=== PATIENT | female | born 1975 | race Caucasian/White ===

== ENCOUNTER 2016-09-24 15:41 | Emergency (ER) | payer OTHER ==
[2016-09-24 16:09] VITALS: BP 126/73
--- NOTE | 2016-09-24 16:25 | UC ---
Throat Pain/Nasal Jamar HPI - HPI Summary HPI Summary: FOUR DAYS OF SINUS PRESSURE FACIAL PAIN HEADACHE AND SWOLLEN TONSILS. NO FEVER. - History of Current Complaint Chief Complaint: UCRespiratory Stated Complaint: SORE THROAT NASAL CONGESTION Time Seen by Provider: 09/24/16 15:53 Hx Obtained From: Patient Hx Last Menstrual Period: 09/18/16 Onset/Duration: Gradual Onset, Lasting Days, Still Present Severity: Moderate Cough: Nonproductive Associated Signs & Symptoms: Positive: Sinus Discomfort, Nasal Discharge - Epiglottits Risk Factors Epiglottis Risk Factors: Negative - Allergies/Home Medications Allergies/Adverse Reactions: Allergies Allergy/AdvReac Type Severity Reaction Status Date / Time Aspirin Allergy Hives Verified 09/24/16 15:50 PMH/Surg Hx/FS Hx/Imm Hx Previously Healthy: Yes Endocrine History Of: Reports: Thyroid Disease Cardiovascular History Of: Denies: Hypertension, Congestive Heart Failure Respiratory History Of: Reports: Asthma - Surgical History Surgical History: Yes Surgery Procedure, Year, and Place: tubal ligation - Family History Known Family History: Negative: Respiratory Disease - Social History Occupation: Employed Full-time Lives: With Family Alcohol Use: Rare Substance Use Type: None Smoking Status (MU): Former Smoker Amount Used/How Often: 1 year ago - Immunization History Most Recent Influenza Vaccination: 2016 Most Recent Tetanus Shot: UTD Review of Systems Constitutional: Negative Skin: Negative Eyes: Negative ENT: Sore Throat, Nasal Discharge Respiratory: Cough Cardiovascular: Negative Gastrointestinal: Negative Genitourinary: Negative Motor: Negative Neurovascular: Negative Musculoskeletal: Negative Neurological: Negative Psychological: Negative All Other Systems Reviewed And Are Negative: Yes Physical Exam Triage Information Reviewed: Yes Appearance: Well-Appearing, No Pain Distress, Well-Nourished Vital Signs: Initial Vital Signs Temp 97.9 F 09/24/16 15:54 Pulse 86 09/24/16 15:54 Resp 18 09/24/16 15:54 BP 126/73 09/24/16 15:54 Pulse Ox 99 09/24/16 15:54 Vital Signs Reviewed: Yes Eye Exam: Normal ENT: Positive: Hearing grossly normal, Nasal congestion, TM bulging, TM dull Dental Exam: Normal Neck exam: Normal Neck: Positive: Supple, Nontender, No Lymphadenopathy Respiratory Exam: Normal Respiratory: Positive: Chest non-tender, Lungs clear, Normal breath sounds, No respiratory distress, No accessory muscle use Cardiovascular Exam: Normal Cardiovascular: Positive: RRR, No Murmur Abdominal Exam: Normal Musculoskeletal Exam: Normal Musculoskeletal: Positive: Strength Intact, ROM Intact Neurological Exam: Normal Psychological Exam: Normal Skin Exam: Normal Throat Pain/Nasal Course/Dx - Differential Dx/Diagnosis Differential Diagnosis/HQI/PQRI: Pharyngitis, Sinusitis, URI Provider Diagnoses: SINUSITIS; TONSILLITIS Discharge - Discharge Plan Condition: Stable Disposition: HOME Prescriptions: Amoxicillin/Clavulanate TAB* [Augmentin TAB 875*] 875 mg PO BID #20 tab Benzonatate CAP* [Tessalon 100 MG CAP*] 100 mg PO TID PRN #15 cap PRN Reason: Cough Patient Education Materials: Sinusitis (ED) Referrals: Piper De La Garza NP [Primary Care Provider] -
== END 2016-09-24 16:27 | disposition home or self-care (01) ==
LOC: UCCORT 15:41
DX: J32.9 Chronic sinusitis, unspecified (principal); J03.90 Acute tonsillitis, unspecified; E07.9 Disorder of thyroid, unspecified; J45.909 Unspecified asthma, uncomplicated; Z88.6 Allergy status to analgesic agent; Z87.891 Personal history of nicotine dependence
CPT/HCPCS: 87651; 99212; G0463

== ENCOUNTER 2017-02-17 16:36 | Emergency (ER) | payer OTHER ==
[2017-02-17 16:53] VITALS: BP 118/78
--- NOTE | 2017-02-17 18:16 | UC ---
Skin Complaint HPI - HPI Summary HPI Summary: THREE DAYS AGO BITTEN OR STUNG BY FLYING INSECT, REDNESS SWELLING AND PAIN TO AREA TODAY. NO HISTORY OF MRSA. NO FEVER. - History of Current Complaint Chief Complaint: UCSkin Time Seen by Provider: 02/17/17 17:30 Stated Complaint: BUG BITE Hx Obtained From: Patient, Family/Bolt Labeler Hx Last Menstrual Period: 01/26/14 Onset/Duration: Gradual Onset, Lasting Days, Still Present Skin Exposure Onset/Duration: Days Ago Onset Severity: Moderate Current Severity: Moderate Pain Intensity: 0 Pain Scale Used: 0-10 Numeric Location: Discrete Character: Swelling, Redness, Raised, Painful Aggravating Factor(s): Touch Alleviating Factor(s): Nothing Associated Signs & Symptoms: Positive: Negative, Tenderness, Red Streaks. Negative: Fever, Chills, Chest Pain, Hoarseness, Throat Tightening, Drainage, Joint Swelling Related History: Possible Reaction to: Insect - Allergy/Home Medications Allergies/Adverse Reactions: Allergies Allergy/AdvReac Type Severity Reaction Status Date / Time Aspirin Allergy Hives Verified 09/24/16 15:50 Review of Systems Constitutional: Negative Skin: Rash Eyes: Negative ENT: Negative Respiratory: Negative Cardiovascular: Negative Gastrointestinal: Negative Genitourinary: Negative Motor: Negative Neurovascular: Negative Musculoskeletal: Negative Neurological: Negative Psychological: Negative Is Patient Immunocompromised?: No All Other Systems Reviewed And Are Negative: Yes PMH/Surg Hx/FS Hx/Imm Hx Previously Healthy: Yes - Surgical History Surgical History: Yes Surgery Procedure, Year, and Place: tubal ligation - Family History Known Family History: Negative: Diabetes, Respiratory Disease - Social History Occupation: Employed Full-time Lives: With Family Alcohol Use: Rare Substance Use Type: None Smoking Status (MU): Former Smoker Amount Used/How Often: 1 year ago - Immunization History Most Recent Influenza Vaccination: 2016 Most Recent Tetanus Shot: UTD Physical Exam Triage Information Reviewed: Yes Appearance: Well-Appearing, No Pain Distress, Well-Nourished Vital Signs: Initial Vital Signs Temp 97.7 F 02/17/17 16:49 Pulse 84 02/17/17 16:49 Resp 18 02/17/17 16:49 BP 118/78 02/17/17 16:49 Pulse Ox 100 02/17/17 16:49 Vital Signs Reviewed: Yes Eye Exam: Normal ENT Exam: Normal Dental Exam: Normal Neck exam: Normal Neck: Positive: Supple, Nontender, No Lymphadenopathy Respiratory Exam: Normal Respiratory: Positive: Chest non-tender, Lungs clear, Normal breath sounds, No respiratory distress Cardiovascular Exam: Normal Cardiovascular: Positive: RRR, No Murmur, Pulses Normal Abdominal Exam: Normal Musculoskeletal Exam: Normal Neurological Exam: Normal Psychological Exam: Normal Skin: Positive: Other - ERYTHEMA 3CM X 3CM INDURATED TENDER AREA RIGHT FOREARM Course/Dx - Differential Diagnoses - Skin Complaint Differential Diagnoses: Abscess, Cellulitis - Diagnoses Provider Diagnoses: RIGHT FOREARM CELLULITIS; INSECT BITE/STING Discharge - Discharge Plan Condition: Stable Disposition: HOME Prescriptions: Cephalexin CAP* [Keflex CAP*] 500 mg PO QID #40 cap Patient Education Materials: Cellulitis (ED), Insect Bite or Sting (ED) Referrals: Pipre De La Garza NP [Primary Care Provider] -
== END 2017-02-17 17:47 | disposition home or self-care (01) ==
LOC: UCEAST 16:36
DX: S50.861A Insect bite (nonvenomous) of right forearm, initial encounter (principal); L03.113 Cellulitis of right upper limb; W57.XXXA Bitten or stung by nonvenomous insect and other nonvenomous arthropods, initial encounter
CPT/HCPCS: 99212; G0463

== ENCOUNTER 2017-03-26 11:59 | Emergency (ER) | payer OTHER ==
[2017-03-26 12:09] VITALS: BP 132/74
--- NOTE | 2017-03-26 12:12 | UC ---
Epistaxis Nasal HPI - HPI Summary HPI Summary: 41 year old female presents with complains of frequent nose bleeds from her right nare. - History of Current Complaint Chief Complaint: UCGeneralIllness Stated Complaint: FREQUENT BLOODY NOSE Time Seen by Provider: 03/26/17 12:12 Hx Obtained From: Patient Hx Last Menstrual Period: 01/26/14 Onset/Duration: Sudden Onset Timing: Constant Severity Initially: Moderate Severity Currently: Moderate Aggravating Factor(s): Nothing Alleviating Factor(s): Pressure, Position Associated Signs And Symptoms: Positive: Negative - Allergies/Home Medications Allergies/Adverse Reactions: Allergies Allergy/AdvReac Type Severity Reaction Status Date / Time Aspirin Allergy Hives Verified 03/26/17 12:09 Home Medications: Home Medications Albuterol HFA INHALER* [Ventolin HFA Inhaler*] 2 puff INH Q4H PRN 03/26/17 [ History Confirmed 03/26/17] Budesonide/Formote 160/4.5(NF) [Symbicort 160/4.5 (NF)] 2 puff INH BID 03/26/17 [History Confirmed 03/26/17] Levothyroxine TAB* [Synthroid TAB*] 800 mcg PO DAILY 03/26/17 [History Confirmed 03/26/17] Liothyronine TAB* [Cytomel TAB*] 100 mcg PO DAILY 03/26/17 [History Confirmed ] PMH/Surg Hx/FS Hx/Imm Hx Previously Healthy: Yes - Surgical History Surgical History: Yes Surgery Procedure, Year, and Place: tubal ligation - Family History Known Family History: Negative: Diabetes, Respiratory Disease - Social History Alcohol Use: Rare Substance Use Type: None Smoking Status (MU): Former Smoker Amount Used/How Often: 1 year ago - Immunization History Most Recent Influenza Vaccination: 2016 Most Recent Tetanus Shot: UTD Review of Systems Constitutional: Negative Skin: Negative Eyes: Negative ENT: Epistaxis Respiratory: Negative Cardiovascular: Negative Gastrointestinal: Negative Genitourinary: Negative Motor: Negative Neurovascular: Negative Musculoskeletal: Negative Neurological: Negative Psychological: Negative All Other Systems Reviewed And Are Negative: Yes Physical Exam Triage Information Reviewed: Yes Appearance: Well-Appearing Vital Signs: Initial Vital Signs Temp 36.9 C 03/26/17 12:07 Pulse 101 03/26/17 12:07 Resp 14 03/26/17 12:07 BP 132/74 03/26/17 12:07 Pulse Ox 98 03/26/17 12:07 Eye Exam: Normal ENT: Positive: Other - right nare anterior nasal bleed Dental Exam: Normal Neck exam: Normal Neck: Positive: 1 Respiratory Exam: Normal Cardiovascular Exam: Normal Abdominal Exam: Normal Musculoskeletal Exam: Normal Neurological Exam: Normal Psychological Exam: Normal Skin Exam: Normal Epistaxis Nasal Course/Dx - Differential Dx/Diagnosis Provider Diagnoses: anterior nose bleed rigth nare Discharge - Discharge Plan Condition: Stable Disposition: HOME Prescriptions: Amoxicillin/Clavulanate TAB* [Augmentin TAB 875*] 875 mg PO BID #20 tab Patient Education Materials: Nosebleed (ED) Referrals: Piper De La Garza NP [Primary Care Provider] - Alhaji Koch MD [Medical Doctor] - Additional Instructions: PATIENT PREFERS [facility] TO AVAILABILITY AND PROXIMITY.
[2017-03-26] MEDS ORDERED: Lidocaine 1% MPF wEPI 200,000* 30 ML SDV ONE (12:16)
[2017-03-26] MEDS ORDERED: Phenylephrine 1% NASAL* 15 ML BOT RIGHT NARE ONE (12:22)
[2017-03-26] MEDS ORDERED: Phenylephrine 0.5% NASAL* BTL RIGHT NARE ONE (12:26)
== END 2017-03-26 13:07 | disposition home or self-care (01) ==
LOC: UCCORT 11:59
DX: R04.0 Epistaxis (principal); Z88.6 Allergy status to analgesic agent; Z87.891 Personal history of nicotine dependence
CPT/HCPCS: 30901; 99212; G0463; J2001

== ENCOUNTER 2017-03-28 22:37 | Emergency (ER) | payer OTHER ==
[2017-03-29] MEDS ORDERED: Lidocaine 2% JELLY* 6 ML JELLY TOPICAL ONE ×2 (00:06→00:50)
[2017-03-29] MEDS ORDERED: Amoxicillin/Clavulanate TAB* 875 MG PO ONE (00:20)
[2017-03-29] MEDS ORDERED: oxyCODONE/Acetamin 5/325 MG* TAB PO ONE (00:21)
--- NOTE | 2017-03-29 00:32 | ED ---
Vu Thompson Nilda, scribed for Jose Luis Odell MD on 03/29/17 at 0006 . Throat Pain/Nasal Congestion - HPI Summary HPI Summary: This patient is a 41 year old F presenting to [facility] accompanied by mother with a chief complaint of severe epistaxis (3x) since 1930 today. Pt also had epistaxis yesterday which was compressed and cauterized by Dr. Lopez, thereby resolving symptoms. Symptoms aggravated and alleviated by nothing. - History of Current Complaint Chief Complaint: EDEpistaxis Time Seen by Provider: 03/28/17 23:55 Hx Obtained From: Patient Onset/Duration: Sudden Onset, Lasting Hours, Still Present Severity: Severe Cough: None - Allergies/Home Medications Allergies/Adverse Reactions: Allergies Allergy/AdvReac Type Severity Reaction Status Date / Time Aspirin Allergy Hives Verified 03/26/17 12:09 PMH/Surg Hx/FS Hx/Imm Hx Endocrine/Hematology History: Reports: Hx Thyroid Disease Cardiovascular History: Denies: Hx Congestive Heart Failure, Hx Hypertension Respiratory History: Reports: Hx Asthma History: Reports: Other Problems/Disorders - LEFT KIDNEY STONE - Surgical History Surgery Procedure, Year, and Place: tubal ligation Infectious Disease History: No Infectious Disease History: Denies: Traveled Outside the [place] in Last 30 Days - Family History Known Family History: Negative: Diabetes, Respiratory Disease - Social History Occupation: Employed Full-time Alcohol Use: Rare Substance Use Type: Reports: None Smoking Status (MU): Former Smoker Amount Used/How Often: 1 year ago Review of Systems Positive: Epistaxis Negative: Cough All Other Systems Reviewed And Are Negative: Yes Physical Exam - Summary Physical Exam Summary: GENERAL: Patient is a well-developed and nourished female who is lying comfortable in the stretcher. Patient is not in any acute respiratory distress. HEAD AND FACE: No signs of trauma. No ecchymosis, hematomas or skull depressions. No sinus tenderness. EYES: PERRLA, EOMI x 2, No injected conjunctiva, no nystagmus. EARS: Hearing grossly intact. Ear canals and tympanic membranes are within normal limits. NOSE: Left nostril had diffuse raw area with fresh blood. Right nostril has small raw area but no active bleeding. MOUTH: Oropharynx within normal limits. NECK: Supple, trachea is midline, no adenopathy, no JVD, no carotid bruit, no c- spine tenderness, neck with full ROM. CHEST: Symmetric, no tenderness at palpation LUNGS: Clear to auscultation bilaterally. No wheezing or crackles. CVS: Regular rate and rhythm, S1 and S2 present, no murmurs or gallops appreciated. ABDOMEN: Soft, non-tender. No signs of distention. No rebound no guarding, and no masses palpated. Bowel sounds are normal. EXTREMITIES: FROM in all major joints, no edema, no cyanosis or clubbing. NEURO: Alert and oriented x 3. No acute neurological deficits. Speech is normal and follows commands. SKIN: Dry and warm Triage Information Reviewed: Yes Vital Signs On Initial Exam: Initial Vitals Temp Pulse Resp BP Pulse Ox 98.2 F 59 20 141/87 95 03/28/17 22:43 03/28/17 22:43 03/28/17 22:43 03/28/17 22:43 03/28/17 22:43 Vital Signs Reviewed: Yes - [place] Coma Scale Coma Scale Total: 15 Procedures - Procedure Summary Procedure Summary: 4.5cm rocket place in left nostril. Diagnostics - Vital Signs Vital Signs Temp Pulse Resp BP Pulse Ox 03/28/17 22:43 98.2 F 59 20 141/87 95 - Laboratory Lab Statement: Any lab studies that have been ordered have been reviewed, and results considered in the medical decision making process. EENT Course/Dx - Course Assessment/Plan: This patient is a 41 year old F presenting to [facility] accompanied by mother with a chief complaint of severe epistaxis (3x) since 1930 today. Pt also had epistaxis yesterday which was compressed and cauterized by Dr. Lopez, thereby resolving symptoms. Symptoms aggravated and alleviated by nothing. Placed 4.5 cm rocket in left nostril. Pt is stable and will be D/C with follow up with Dr. Lopez 03/30/17. Dx epistaxis. Pt agreeable with this plan. - Diagnoses Provider Diagnoses: Epistaxis Discharge - Discharge Plan Condition: Stable Disposition: HOME Prescriptions: Amoxicillin/Clavulanate TAB* [Augmentin TAB 875*] 875 mg PO BID #14 tab oxyCODONE/Acetamin 5/325 MG* [Percocet 5/325 TAB*] 1 tab PO Q6H PRN #14 tab MDD 4 PRN Reason: Pain Patient Education Materials: Nosebleed (ED) Referrals: Alhaji Lopez MD [Medical Doctor] - 1 Day Additional Instructions: RETURN TO THE EMERGENCY DEPARTMENT FOR CHANGING OR WORSENING SYMPTOMS. The documentation as recorded by the Vu zavala Nilda accurately reflects the service I personally performed and the decisions made by , Jose Luis Odell MD.
[2017-03-29 01:15] VITALS: BP 168/86
== END 2017-03-29 01:14 | disposition home or self-care (01) ==
LOC: ED 22:37
DX: R04.0 Epistaxis (principal); Z87.891 Personal history of nicotine dependence
CPT/HCPCS: 99282; A9270-GY

== ENCOUNTER 2017-08-01 19:43 | Emergency (ER) | payer OTHER ==
[2017-08-01 19:52] VITALS: BP 145/93
--- NOTE | 2017-08-01 20:54 | UC ---
Cardiac HPI - HPI Summary HPI Summary: Patient to urgent care Onset of Acute Substernal Chest Pain. Did Feel Nauseated and Short of Breath at Onset of Pain - History of Current Complaint Chief Complaint: UCChestPain Stated Complaint: CHEST PAIN Time Seen by Provider: 08/01/17 20:01 Hx Obtained From: Patient Hx Last Menstrual Period: 01/26/14 Onset/Duration: Sudden Onset Timing: Constant Initial Severity: Severe Current Severity: Severe Pain Intensity: 10 Chest Pain Location: Discrete at:, Mid Sternal Aggravating Factor(s): Nothing Alleviating Factor(s): Nothing Associated Signs & Symptoms: Positive: SOB - Allergy/Home Medications Allergies/Adverse Reactions: Allergies Allergy/AdvReac Type Severity Reaction Status Date / Time aspirin Allergy Difficulty Verified 08/01/17 19:52 Breathing/Wheezing PMH/Surg Hx/FS Hx/Imm Hx Previously Healthy: No Respiratory History: Asthma - Surgical History Surgical History: Yes Surgery Procedure, Year, and Place: tubal ligation - Family History Known Family History: Negative: Diabetes, Respiratory Disease - Social History Occupation: Employed Full-time Lives: With Family Alcohol Use: Rare Substance Use Type: None Smoking Status (MU): Former Smoker Amount Used/How Often: 1 year ago Have You Smoked in the Last Year: No - Immunization History Most Recent Influenza Vaccination: 2016 Most Recent Tetanus Shot: UTD Review of Systems Constitutional: Negative Skin: Negative Eyes: Negative ENT: Negative Respiratory: Negative Cardiovascular: Chest Pain Gastrointestinal: Negative Genitourinary: Negative Motor: Negative Neurovascular: Negative Musculoskeletal: Negative Neurological: Negative Psychological: Negative Is Patient Immunocompromised?: No All Other Systems Reviewed And Are Negative: Yes Physical Exam Triage Information Reviewed: Yes Appearance: Well-Nourished, Ill-Appearing, Pain Distress Vital Signs: Initial Vital Signs Temp 99.1 F 08/01/17 19:48 Pulse 89 08/01/17 19:48 Resp 18 08/01/17 19:48 BP 145/93 08/01/17 19:48 Pulse Ox 100 08/01/17 19:48 Vital Signs Reviewed: Yes Eye Exam: Normal Eyes: Positive: Conjunctiva Clear ENT Exam: Normal ENT: Positive: Normal ENT inspection, Hearing grossly normal. Negative: Nasal congestion, Nasal drainage, Trismus, Muffled voice, Hoarse voice, Dental tenderness Dental Exam: Normal Neck exam: Normal Neck: Positive: Supple, Nontender Respiratory Exam: Normal Respiratory: Positive: Chest non-tender, Lungs clear, Normal breath sounds, No respiratory distress, No accessory muscle use Cardiovascular Exam: Normal Cardiovascular: Positive: RRR, No Murmur, Pulses Normal, Brisk Capillary Refill Musculoskeletal Exam: Normal Musculoskeletal: Positive: Strength Intact, ROM Intact, No Edema Neurological Exam: Normal Neurological: Positive: Alert, Muscle Tone Normal Psychological Exam: Normal Skin Exam: Normal Diagnostics - EKG Cardiac Rate: NL Cardiac Rhythm: Sinus: Normal Ectopy: None ST Segment: Non-Specific - T waves flattened 2, 3 and aVF - Assessment/Plan Course Of Treatment: To [facility] by ambulance for further evaluation of chest pain - Clinical Impression Provider Diagnoses: Chest pain, flattened T's in inferior leads, hypertension Discharge - Sign-Out/Discharge Documenting (check all that apply): Discharge - Discharge Plan Condition: Stable Disposition: TRANS HIGHER LVL OF CARE FAC Discharge Disposition Comment: to [facility] [place] Referrals: Piper De La Garza NP [Primary Care Provider] - - Billing Disposition and Condition Condition: STABLE Disposition: EMTALA
== END 2017-08-01 20:28 | disposition short-term general hospital (02) ==
LOC: UCEAST 19:43
DX: R07.89 Other chest pain (principal); R94.31 Abnormal electrocardiogram [ECG] [EKG]; I10 Essential (primary) hypertension; R06.02 Shortness of breath; Z88.6 Allergy status to analgesic agent; Z87.891 Personal history of nicotine dependence
CPT/HCPCS: 93005; 99213; G0463

== ENCOUNTER 2017-08-01 20:45 | Emergency (ER) | payer OTHER ==
[2017-08-01 21:11] LABS: ABS Basophils 0.1 10^3/ul (0-0.2); ABS Eosinophils 0.2 10^3/ul (0-0.6); ABS Lymphocytes 2.1 10^3/ul (1.0-4.8); ABS Monocytes 0.6 10^3/ul (0-0.8); ABS Neutrophils 4.7 10^3/ul (1.5-7.7); ABS Nucleated RBC 0 10^3/ul; Hematocrit 38 % (35-47); Hemoglobin 13.1 g/dl (12.0-16.0); Lymphocyte % 27.6 % (25-47); Mean Corpuscular HGB Conc 35 g/dl (31-36); Mean Corpuscular Hemoglobin 29 pg (27-31); Mean Corpuscular Volume 85 fL (80-97); Mean Platelet Volume 7.8 um3 (7.4-10.4); Nucleated Red Blood Cells % 0.1; Platelet Count 359 10^3/ul (150-450); Red Blood Count 4.45 10^6/ul (4.0-5.4); Red Cell Distribution Width 14 % (10.5-15); White Blood Count 7.6 10^3/ul (3.5-10.8)
[2017-08-01 21:33] LABS: EGFR Non-African American 77.5 (>60)
--- NOTE | 2017-08-01 22:28 | RAD ---
INDICATION: Midsternal chest pain COMPARISON: Most recent comparison chest x-rays dated April 26, 2010 TECHNIQUE: PA and lateral views of the chest were obtained. FINDINGS: The heart and mediastinum are normal in size and contour. The lungs are grossly clear. There is no evidence of large pleural effusion. Visualized bones are normal for the patient's age. There is no radiographic evidence of free air beneath the diaphragm IMPRESSION: No radiographic evidence of acute cardiopulmonary disease.
[2017-08-01 22:53] VITALS: BP 142/77
--- NOTE | 2017-08-01 23:32 | ED ---
HPI Chest Pain - HPI Summary HPI Summary: Patient is an otherwise healthy 42-year-old female presenting to the ED with midsternal chest pain which was acute onset this morning, since resolved prior to ED arrival. She was seen at the urgent care who promptly center to the ED. Endorses strong family history mother and father of hypertension, hyperlipidemia and CAD. She denies any personal cardiac history, but endorses similar midsternal chest pains approximately 4 years ago which was followed up by echocardiogram which was normal. She has not been followed by any mechanical systems engineer since that time. She denies any radiation of pain to either upper extremity, neck or jaw. Pain is not worse with movement and not better with rest. Symptoms are not aggravated with exertion or alleviated with position. She denies any nausea, vomiting, diarrhea constipation. Denies any fevers, sweats, chills. She states she has been feeling otherwise well. Denies any URI symptoms and states she has not been sick recently. While symptoms have been present since this morning, worsening symptoms she endorses while at the urgent care and had since resolved by the time she arrived to the ED. Family is at bedside. She did not take anything for pain including Tylenol or ibuprofen or aspirin. She uses an asthma inhaler, but denies any other medication use daily. She has not needed her asthma medication recently and denies any shortness of breath with these episodes. Denies any recent travel, calf pain and patient does not smoke. - History of Current Complaint Chief Complaint: EDChestWallPain Time Seen by Provider: 08/01/17 20:57 Hx Obtained From: Patient Hx Last Menstrual Period: 01/26/14 Onset/Duration: Started Hours Ago Timing: Constant Initial Severity: Mild Current Severity: None Pain Intensity: 0 Pain Scale Used: 0-10 Numeric Chest Pain Location: Mid Sternal Chest Pain Radiates: No Character: Dull/Aching, Heaviness Aggravating Factor(s): Nothing Alleviating Factor(s): Nothing Associated Signs and Symptoms: Positive: Negative - Risk Factors Pulmonary Embolism Risk Factors: Negative TAD Risk Factors: Negative - Allergy/Home Medications Allergies/Adverse Reactions: Allergies Allergy/AdvReac Type Severity Reaction Status Date / Time aspirin Allergy Difficulty Verified 08/01/17 19:52 Breathing/Wheezing PMH/Surg Hx/FS Hx/Imm Hx Previously Healthy: Yes Endocrine/Hematology History: Reports: Hx Thyroid Disease Cardiovascular History: Denies: Hx Congestive Heart Failure, Hx Hypertension Respiratory History: Reports: Hx Asthma History: Reports: Other Problems/Disorders - LEFT KIDNEY STONE - Surgical History Surgery Procedure, Year, and Place: tubal ligation - Immunization History Hx Pertussis Vaccination: No Immunizations Up to Date: Unable to Obtain/Confirm Infectious Disease History: No Infectious Disease History: Denies: Traveled Outside the [place] in Last 30 Days - Family History Known Family History: Negative: Diabetes, Respiratory Disease - Social History Occupation: Employed Full-time Lives: With Family Alcohol Use: Rare Hx Substance Use: No Substance Use Type: Reports: None Hx Tobacco Use: No Smoking Status (MU): Former Smoker Amount Used/How Often: 1 year ago Review of Systems Constitutional: Negative Negative: Fever, Chills, Fatigue, Skin Diaphoresis Eyes: Negative Negative: Dental Pain, Sore Throat, Ear Ache Positive: Chest Pain Negative: Shortness Of Breath, Cough Negative: Abdominal Pain, Vomiting, Diarrhea, Nausea Genitourinary: Negative Positive: no symptoms reported, see HPI Musculoskeletal: Negative Neurological: Negative All Other Systems Reviewed And Are Negative: Yes Physical Exam Triage Information Reviewed: Yes Vital Signs On Initial Exam: Initial Vitals BP 133/64 08/01/17 20:56 Vital Signs Reviewed: Yes Appearance: Positive: Well-Appearing, Well-Nourished Skin: Positive: Warm, Skin Color Reflects Adequate Perfusion Head/Face: Positive: Normal Head/Face Inspection Eyes: Positive: EOMI, JOSE, Conjunctiva Clear Neck: Positive: Supple, No Lymphadenopathy Respiratory/Lung Sounds: Positive: Clear to Auscultation, Breath Sounds Present Cardiovascular: Positive: RRR, Pulses are Symmetrical in both Upper and Lower Extremities. Negative: Murmur, Leg Edema Left, Leg Edema Right Musculoskeletal: Positive: Normal, Strength/ROM Intact Neurological: Positive: Speech Normal Psychiatric: Positive: Normal, Affect/Mood Appropriate AVPU Assessment: Alert Diagnostics - Vital Signs Vital Signs Temp Pulse Resp BP Pulse Ox 08/01/17 22:53 99.1 F 78 16 142/77 99 08/01/17 22:30 76 13 142/77 99 08/01/17 22:09 77 11 122/68 100 08/01/17 22:00 76 15 100 08/01/17 21:01 99.1 F 90 16 126/76 99 08/01/17 21:00 85 19 135/67 100 08/01/17 20:57 87 19 99 08/01/17 20:56 133/64 - Laboratory Lab Results: Lab Results 08/01/17 08/01/17 Range/Units 20:20 20:20 WBC 7.6 (3.5-10.8) 10^3/ul RBC 4.45 (4.0-5.4) 10^6/ul Hgb 13.1 (12.0-16.0) g/dl Hct 38 (35-47) % MCV 85 (80-97) fL MCH 29 (27-31) pg MCHC 35 (31-36) g/dl RDW 14 (10.5-15) % Plt Count 359 (150-450) 10^3/ul MPV 7.8 (7.4-10.4) um3 Neut % (Auto) 61.7 (38-83) % Lymph % (Auto) 27.6 (25-47) % [place] % (Auto) 8.0 H (0-7) % Eos % (Auto) 2.0 (0-6) % Baso % (Auto) 0.7 (0-2) % Absolute Neuts (auto) 4.7 (1.5-7.7) 10^3/ul Absolute Lymphs (auto) 2.1 (1.0-4.8) 10^3/ul Absolute Monos (auto) 0.6 (0-0.8) 10^3/ul Absolute Eos (auto) 0.2 (0-0.6) 10^3/ul Absolute Basos (auto) 0.1 (0-0.2) 10^3/ul Absolute Nucleated RBC 0 10^3/ul Nucleated RBC % 0.1 Sodium 138 L (139-145) mmol/L Potassium 3.1 L (3.5-5.0) mmol/L Chloride 96 L (101-111) mmol/L Carbon Dioxide 31 (22-32) mmol/L Anion Gap 11 (2-11) mmol/L BUN 11 (6-24) mg/dL Creatinine 0.81 (0.51-0.95) mg/dL Est GFR ( Amer) 99.7 (>60) Est GFR (Non-Af Amer) 77.5 (>60) BUN/Creatinine Ratio 13.6 (8-20) Glucose 101 H (70-100) mg/dL Calcium 9.9 (8.6-10.3) mg/dL Total Bilirubin 1.30 H (0.2-1.0) mg/dL AST 20 (13-39) U/L ALT 19 (7-52) U/L Alkaline Phosphatase 70 (34-104) U/L Troponin I 0.00 (<0.04) ng/mL Total Protein 7.9 (6.4-8.9) g/dL Albumin 4.5 (3.2-5.2) g/dL Globulin 3.4 (2-4) g/dL Albumin/Globulin Ratio 1.3 (1-3) Result Diagrams: 08/01/17 20:20 08/01/17 20:20 Lab Statement: Any lab studies that have been ordered have been reviewed, and results considered in the medical decision making process. Chest Pain Course/Dx - Course Course Of Treatment: During the course of treatment, the patient is evaluated for chest pain. On arrival and EKG was promptly performed which shows normal sinus rhythm borderline T abnormalities, inferior leads. Read by Dr. Hernández. I have looked at the EKG and I agree with these findings. Rate is 79. Her vital signs are otherwise stable with a normal blood pressure and patient is afebrile. Labs obtained and are unremarkable except for a slightly low sodium at 138. She appears comfortable. Lungs are clear to auscultation bilaterally. Pain is reproducible with deep palpation and is located discretely over the midsternum. No pain in the epigastric region. Denies any abdominal pain. No CVA tenderness or other back pain. Denies shortness of breath. Troponin 0.00. I've discussed with her the results of her lab tests and have advised she follow up with a mechanical systems engineer. She is to return to the ED for any worsening or changing symptoms. I do not believe she needs to be admitted to the hospital at this time as she is asymptomatic with a negative troponin and all other labs and EKG are normal. Patient is at a low risk for PE as she is not tachycardic, no recent travel, no shortness of breath and denies any calf pain. PERC score 0. For a possible inflammatory response such as a costochondritis, I have advised she trial ibuprofen 600 mg 3 times daily to assess for response. She denies any other concerns at this time and is okay for discharge. - Chest Pain Differential Diagnosis/HQI/PQRI: ACS, Chest Wall, Other: - Costochondritis - Diagnoses Provider Diagnoses: Midsternal chest pain Discharge - Sign-Out/Discharge Documenting (check all that apply): Discharge - Discharge Plan Condition: Stable Disposition: HOME Patient Education Materials: Chest Wall Pain (ED) Referrals: Piper De La Garza NP [Primary Care Provider] - Additional Instructions: Please follow up with PCP If any symptoms become worse or change, return to the ED immediately I have given you a follow-up to cardiology As discussed, all your lab work on today's visit was within normal limits Ibuprofen 600mg 3 times daily for an inflammatory response as discussed - Billing Disposition and Condition Condition: STABLE Disposition: HOME
== END 2017-08-01 22:53 | disposition home or self-care (01) ==
LOC: ED 20:45
DX: R07.9 Chest pain, unspecified (principal); Z87.891 Personal history of nicotine dependence
CPT/HCPCS: 36415; 71046; 80053; 84484; 85025; 93005; 99282